=== PATIENT | female | born 1980 | race African-American/Black ===

== ENCOUNTER 2017-09-09 13:47 | Emergency (ER) | payer OTHER ==
[~2017-09-09] VITALS: Ht 160 cm; Wt 101.2 kg
[2017-09-09 14:02] VITALS: BP 140/102
--- NOTE | 2017-09-09 16:37 | NUR ---
Pt ambulated to bed 3.
--- NOTE | 2017-09-09 16:47 | NUR ---
PATIENT PRESENTS TO ED WITH C/O RIGHT HEEL PAIN AND MEDIAL ASPECT OF RIGHT ANKLE, DENIES INJURY OR TRAUMA;RT FOOT IS MILDLY SWOLLEN;NO HEMATOMA NOTED;PT STATES SHE IS UNABLE TO BEAR WEIGHT ON HER RT FOOT;DENIES N/V/D; SKIN IS PINK/WARM/DRY; AAOX4 WITH EVEN AND STEADY GAIT; LUNGS CLEAR BL; HR EVEN AND REGULAR; PT DENIES ANY FEVER, CP, SOB, OR COUGH AT THIS TIME; PATIENT STATES PAIN OF 8/10 AT THIS TIME; PATIENT POSITIONED FOR COMFORT; HOB ELEVATED; BEDRAILS UP X2; BED DOWN. ER MD MADE AWARE OF PT STATUS.
[2017-09-09] MEDS ORDERED: KETOROLAC 60 MG/2 ML VIAL IM ONE (17:15)
[2017-09-09 17:41] VITALS: BP 146/91
== END 2017-09-09 17:40 | disposition home or self-care (01) ==
LOC: MED 13:47
DX: M25.571 Pain in right ankle and joints of right foot (principal); Z90.49 Acquired absence of other specified parts of digestive tract; Z88.0 Allergy status to penicillin
CPT/HCPCS: 73610; 73630; 96372; 99284; J1885